=== PATIENT | male | born 1975 | race Caucasian/White ===

== ENCOUNTER 2021-06-11 00:04 | Emergency (ER) | payer SELFPAY ==
[~2021-06-11] VITALS: Ht 177.8 cm; Wt 109.0 kg
[2021-06-11 00:05] VITALS: BP 128/84
== END 2021-06-11 00:36 | disposition home or self-care (01) ==
LOC: ER 00:04
DX: F10.129 Alcohol abuse with intoxication, unspecified (principal); Y90.9 Presence of alcohol in blood, level not specified
CPT/HCPCS: 99283